=== PATIENT | male | born 1965 | race Caucasian/White ===

== ENCOUNTER → 2023-09-19 14:28 | Outpatient (REF) | payer MEDICARE, OTHER, SELFPAY ==
[2023-09-19 15:45] LABS: % Basophils 0.7 % (0-2); % Eosinophils 3.7 % (0-6); % Immature Granulocytes 0.4 % (0-0.5); % Lymphocytes 31.1 % (20.5-51.1); % Monocytes 11.3 % (1.7-9.3); % Neutrophils 52.8 % (42.2-75.2); Absolute Eosinophils 0.2 10^3/uL (0-0.7); Absolute Lymphocytes 1.4 10^3/uL (1.2-3.4); Absolute Monocytes 0.5 10^3/uL (0.1-0.6); Absolute Neutrophils 2.4 10^3/uL (1.4-6.5); Hematocrit 40.1 % (39.0-52.0); Hemoglobin 13.8 g/dL (13.0-18.0); Mean Corp Hgb Conc. 34.4 g/dL (33.0-37.0); Mean Corpuscular Hgb 28.4 pg (27.0-31.0); Mean Corpuscular Volume 82.5 fL (80.0-94.0); Mean Platelet Volume 9.8 fL (7.4-10.4); Nucleated Red Blood Cells % 0 % (-); Platelet Count 191 10^3/uL (130-400); Red Blood Cell Count 4.86 10^6/uL (4.70-6.10); Red Cell Dist. Width 12.6 % (11.5-14.5); White Blood Cell Count 4.6 10^3/uL (4.8-10.8)
[2023-09-19 16:40] LABS: Vitamin D, 25-OH*** 54.9 ng/mL (30-80)
[2023-09-19 16:44] LABS: ALT (SGPT) 23 U/L (0-50); AST (SGOT) 37 U/L (17-59); Albumin 4.1 g/dl (3.5-5.0); Alkaline Phosphatase 67 U/L (38-126); Blood Urea Nitrogen 22 mg/dl (9-20); Calcium 9.3 mg/dl (8.4-10.2); Carbon Dioxide 24 mmol/L (22-30); Chloride 102 mmol/L (98-107); Glucose 112 mg/dl (70-99); Potassium 4.5 mmol/L (3.5-5.1); Sodium 135 mmol/L (135-145); Total Bilirubin 0.7 mg/dl (0.2-1.3); Total Protein 6.4 g/dl (6.3-8.2); eGFR > 60.00
[2023-09-19 17:13] LABS: Vitamin B12 527 pg/ml (239-931)
[2023-09-19 17:35] LABS: Creatine Phosphokinase 155 U/L (55-170)
[2023-09-19 18:04] LABS: C-Reactive Protein < 5.00 mg/L (0.0-10.00)
[2023-09-20 14:21] LABS: Rheumatoid Agglutinin Less Than 10 IU (<10 IU)
[2023-09-21 21:01] LABS: HLA-B27 Negative (Negative)
[2023-09-21 21:17] LABS: Angiotensin-1-converting Enzym 40 U/L (16-85)
[2023-09-22 01:56] LABS: CCP Antibody IgG/IgA 3 Units (0-19)
[2023-09-22 03:01] LABS: ANA, IgG Reflex to HEp-2 None Detected (None Detected)
[2023-09-22 10:00] LABS: SSA 52 (Ro)(ENA) Ab, IgG 0 AU/mL (0-40); SSA 60 (Ro)(ENA) Ab, IgG 0 AU/mL (0-40); SSB (La)(ENA) Ab, IgG 1 AU/mL (0-40)
== END ==
LOC: REG 14:28
PROVIDERS: ATTENDING PHYSICIAN Internal Medicine Rheumatology; FAMILY PHYSICIAN Family Medicine
DX: M25.50 Pain in unspecified joint (principal); M45.9 Ankylosing spondylitis of unspecified sites in spine; D51.9 Vitamin B12 deficiency anemia, unspecified; E55.9 Vitamin D deficiency, unspecified
CPT/HCPCS: 36415; 80053; 82164; 82306; 82550; 82607; 85025; 86038; 86140; 86200; 86235; 86430; 86812